=== PATIENT | female | born 1995 | race Hispanic/Latino ===

== ENCOUNTER 2024-02-27 13:28 | Outpatient (CLI) | payer BC | END 2024-02-27 13:29 | disposition home or self-care (01) | LOC: CSHDTY/OP 13:28 | PROVIDERS: ATTEND Nurse Practitioner Family | DX: E66.9 Obesity, unspecified (principal) | CPT/HCPCS: 97802 ==

== ENCOUNTER 2024-03-29 10:54 | Outpatient (CLI) | payer BC | END 2024-03-29 10:55 | disposition home or self-care (01) | LOC: CSHDTY/OP 10:54 | PROVIDERS: ATTEND Nurse Practitioner Family | DX: E66.9 Obesity, unspecified (principal) | CPT/HCPCS: 97802 ==